=== PATIENT | male | born 1965 | race Caucasian/White ===

== ENCOUNTER 2021-06-17 06:49 | Emergency (ER) | payer OTHER, SELFPAY ==
[2021-06-17 06:53] VITALS: BP 153/68; PULSE 73; RESP 14; O2SAT 100; BMI 31.3
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
[2021-06-17] MEDS: CYCLOBENZAPRINE 10 MG TABLET PO (09:03)
[2021-06-17 09:15] VITALS: BP 153/68; PULSE 72; RESP 18; O2SAT 100
== END 2021-06-17 09:15 | disposition home or self-care (01) ==
PROVIDERS: Emergency Provider Emergency Medicine
DX: S16.1XXA Strain of muscle, fascia and tendon at neck level, initial encounter (principal); R91.8 Other nonspecific abnormal finding of lung field; V89.2XXA Person injured in unspecified motor-vehicle accident, traffic, initial encounter; Y92.410 Unspecified street and highway as the place of occurrence of the external cause
CPT/HCPCS: 71045; 72170; 99283